=== PATIENT | male | born 1960 | race American Indian/Alaskan Native ===

== ENCOUNTER 2018-08-15 08:02 | Emergency (ER) | payer MEDICARE ==
[2018-08-15 08:51] LABS: Basophils % (Auto) 0.6 % (0.0-1.8); Eosinophils # (Auto) 0.1 K/mm3 (0.0-0.4); Eosinophils % (Auto) 2.7 % (0.0-4.3); Hematocrit 41.5 % (35.5-45.6); Hemoglobin 13.7 gm/dl (11.8-15.2); Lymphocytes # (Auto) 1.3 K/mm3 (1.2-5.4); Lymphocytes % (Auto) 32.6 % (13.4-35.0); Mean Corpuscular HGB Conc 33 % (32-34); Mean Corpuscular Volume 87 fl (84-94); Monocytes # (Auto) 0.6 K/mm3 (0.0-0.8); Monocytes % (Auto) 13.9 % (0.0-7.3); Platelet Count 156 K/mm3 (140-440); Red Blood Count 4.77 M/mm3 (3.65-5.03); Red Cell Distribution Width 13.9 % (13.2-15.2)
[2018-08-15 09:11] LABS: Bilirubin,Urine NEG (Negative); Blood,Urine NEG (Negative); Color,Urine Yellow (Yellow); Mucus,Urine FEW /HPF; Protein,Urine <15 mg/dL mg/dL (Negative); Urobilinogen,Urine < 2.0 mg/dL (<2.0); WBC,Urine < 1.0 /HPF (0.0-6.0)
[2018-08-15 09:24] LABS: Alanine Aminotransferase 13 units/L (7-56); Albumin 3.9 g/dL (3.9-5); BUN/Creatinine Ratio 13; Blood Urea Nitrogen 10 mg/dL (9-20); Calcium 9.1 mg/dL (8.4-10.2); Hemolysis Index 5
--- NOTE | 2018-08-15 09:55 | XRay Report ---
ABDOMINAL SERIES: History: Vomiting, abdominal pain. Findings: Multiple small air-fluid levels are identified throughout the abdomen. No dilated bowel or free air is identified. No pathologic calcifications. Normal stool in the colon. Heart and mediastinal structures are normal. The lung marino are clear. Impression: Findings consistent with gastroenteritis or a mild diffuse ileus. No acute abdominal findings.
--- NOTE | 2018-08-15 10:11 | Emergency Department Report ---
ED Abdominal Pain HPI - General Chief Complaint: Abdominal Pain Stated Complaint: BOWEL OBSTRUCTION Time Seen by Provider: 08/15/18 08:59 Source: patient Mode of arrival: Ambulatory Limitations: No Limitations - History of Present Illness Initial Comments: 58-year-old male presents to the hospital complaining of pain one week. Last week he was seen by an urgent care provider in [place] and told that he might have a bowel obstruction. He was advised to go to the hospital for further evaluation and imaging. Patient did not go because he have plans to traveled to [place]. He states that the unknown medication that was provided by the treating provider did not help. He continues to have left sided intermittent abdominal pain. Pain is moderate in intensity, worse with by mouth intake and palpitation. Positive nausea without reported vomiting. Patient did have some constipation but now he has diarrhea after taking mag citrate yesterday. No reports of fever, melena, hematochezia, or previous abdominal surgeries. Patient is a diabetic and has not taken his insulin because he states he has not been able to eat much. Severity scale (0 -10): 0 - Related Data Previous Rx's Medication Instructions Recorded Last Taken Type Famotidine [Pepcid] 20 mg PO BID #30 tablet 08/15/18 Unknown Rx Ondansetron [Zofran Odt] 4 mg PO Q8HR PRN #20 tab.rapdis 08/15/18 Unknown Rx Allergies Allergy/AdvReac Type Severity Reaction Status Date / Time No Known Allergies Allergy Unverified 08/15/18 08:04 ED Review of Systems ROS: Stated complaint: BOWEL OBSTRUCTION Other details as noted in HPI Comment: All other systems reviewed and negative ED Past Medical Hx - Past Medical History Hx CVA: Yes Hx Congestive Heart Failure: Yes Hx Diabetes: Yes Additional medical history: Valve Replacement - Surgical History Additional Surgical History: penile implant. valve replacement - Social History Smoking Status: Never Smoker Substance Use Type: Alcohol - Medications Home Medications: Home Medications Medication Instructions Recorded Confirmed Last Taken Type Famotidine [Pepcid] 20 mg PO BID #30 tablet 08/15/18 Unknown Rx Ondansetron [Zofran Odt] 4 mg PO Q8HR PRN #20 tab.rapdis 08/15/18 Unknown Rx ED Physical Exam - General Limitations: No Limitations - Other Other exam information: General: No limitations, patient is alert in no acute distress Head exam: Atraumatic, normocephalic Eyes exam: Normal appearance, pupils equal reactive to light, nonicteric sclera ENT: Moist mucous membrane, normal oropharynx Neck exam: Normal inspection, full range of motion, no meningismus nontender Respiratory exam: Clear to auscultation bilateral, no wheezes, rales, crackles Cardiovascular: Normal rate and rhythm, normal heart sounds Abdomen: Soft, nondistended, right upper quadrant, epigastric, left upper and lower quadrant abdominal tenderness on palpation. No rebound or guarding. Normal Bowel sounds Extremity: Full range of motion normal inspection no deformity Back: Normal Inspection, full range of motion, no tenderness Neurologic: Alert, oriented x3, cranial nerves intact, no motor or sensory deficit Psychiatric: normal affect, normal mood Skin: Warm, dry, intact ED Course Vital Signs 08/15/18 08:46 Temperature 97.7 F Pulse Rate 70 Respiratory 18 Rate Blood Pressure 143/78 O2 Sat by Pulse 100 Oximetry ED Medical Decision Making - Lab Data Result diagrams: 08/15/18 08:32 08/15/18 08:32 Lab Results 08/15/18 08/15/18 08/15/18 Range/Units 08:32 08:32 08:32 WBC 4.0 L (4.5-11.0) K/mm3 RBC 4.77 (3.65-5.03) M/mm3 Hgb 13.7 (11.8-15.2) gm/dl Hct 41.5 (35.5-45.6) % MCV 87 (84-94) fl MCH 29 (28-32) pg MCHC 33 (32-34) % RDW 13.9 (13.2-15.2) % Plt Count 156 (140-440) K/mm3 Lymph % (Auto) 32.6 (13.4-35.0) % [place]ett % (Auto) 13.9 H (0.0-7.3) % Eos % (Auto) 2.7 (0.0-4.3) % Baso % (Auto) 0.6 (0.0-1.8) % Lymph # 1.3 (1.2-5.4) K/mm3 Harnett # 0.6 (0.0-0.8) K/mm3 Eos # 0.1 (0.0-0.4) K/mm3 Baso # 0.0 (0.0-0.1) K/mm3 Seg Neutrophils % 50.2 (40.0-70.0) % Seg Neutrophils # 2.0 (1.8-7.7) K/mm3 VBG pH 7.336 (7.320-7.420) Sodium 137 (137-145) mmol/L Potassium 4.1 (3.6-5.0) mmol/L Chloride 99.8 (98-107) mmol/L Carbon Dioxide 28 (22-30) mmol/L Anion Gap 13 mmol/L BUN 10 (9-20) mg/dL Creatinine 0.8 (0.8-1.5) mg/dL Estimated GFR > 60 ml/min BUN/Creatinine Ratio 13 % Glucose 242 H (75-100) mg/dL Calcium 9.1 (8.4-10.2) mg/dL Total Bilirubin 0.30 (0.1-1.2) mg/dL AST 16 (5-40) units/L ALT 13 (7-56) units/L Alkaline Phosphatase 70 (35-129) units/L Total Protein 7.3 (6.3-8.2) g/dL Albumin 3.9 (3.9-5) g/dL Albumin/Globulin Ratio 1.1 % Lipase 122 H (13-60) units/L Urine Color (Yellow) Urine Turbidity (Clear) Urine pH (5.0-7.0) Ur Specific [place] (1.003-1.030) Urine Protein (Negative) mg/dL Urine Glucose (UA) (Negative) mg/dL Urine Ketones (Negative) mg/dL Urine Blood (Negative) Urine Nitrite (Negative) Urine Bilirubin (Negative) Urine Urobilinogen (<2.0) mg/dL Ur Leukocyte Esterase (Negative) Urine WBC (Auto) (0.0-6.0) /HPF Urine RBC (Auto) (0.0-6.0) /HPF U Epithel Cells (Auto) (0-13.0) /HPF Urine Mucus /HPF 08/15/18 Range/Units 09:02 WBC (4.5-11.0) K/mm3 RBC (3.65-5.03) M/mm3 Hgb (11.8-15.2) gm/dl Hct (35.5-45.6) % MCV (84-94) fl MCH (28-32) pg MCHC (32-34) % RDW (13.2-15.2) % Plt Count (140-440) K/mm3 Lymph % (Auto) (13.4-35.0) % H[place]ett % (Auto) (0.0-7.3) % Eos % (Auto) (0.0-4.3) % Baso % (Auto) (0.0-1.8) % Lymph # (1.2-5.4) K/mm3 H[place]ett # (0.0-0.8) K/mm3 Eos # (0.0-0.4) K/mm3 Baso # (0.0-0.1) K/mm3 Seg Neutrophils % (40.0-70.0) % Seg Neutrophils # (1.8-7.7) K/mm3 VBG pH (7.320-7.420) Sodium (137-145) mmol/L Potassium (3.6-5.0) mmol/L Chloride (98-107) mmol/L Carbon Dioxide (22-30) mmol/L Anion Gap mmol/L BUN (9-20) mg/dL Creatinine (0.8-1.5) mg/dL Estimated GFR ml/min BUN/Creatinine Ratio % Glucose (75-100) mg/dL Calcium (8.4-10.2) mg/dL Total Bilirubin (0.1-1.2) mg/dL AST (5-40) units/L ALT (7-56) units/L Alkaline Phosphatase (35-129) units/L Total Protein (6.3-8.2) g/dL Albumin (3.9-5) g/dL Albumin/Globulin Ratio % Lipase (13-60) units/L Urine Color Yellow (Yellow) Urine Turbidity Clear (Clear) Urine pH 5.0 (5.0-7.0) Ur Specific [place] 1.026 (1.003-1.030) Urine Protein <15 mg/dl (Negative) mg/dL Urine Glucose (UA) 50 (Negative) mg/dL Urine Ketones Neg (Negative) mg/dL Urine Blood Neg (Negative) Urine Nitrite Neg (Negative) Urine Bilirubin Neg (Negative) Urine Urobilinogen < 2.0 (<2.0) mg/dL Ur Leukocyte Esterase Neg (Negative) Urine WBC (Auto) < 1.0 (0.0-6.0) /HPF Urine RBC (Auto) 3.0 (0.0-6.0) /HPF U Epithel Cells (Auto) < 1.0 (0-13.0) /HPF Urine Mucus Few /HPF - Radiology Data Radiology results: report reviewed PROCEDURE: CT ABDOMEN PELVIS W CON CT DOSE LENGTH PRODUCT: 1131.7 mGy-cm. HISTORY: upper and LLQ abd pain, nausea after eating COMPARISONS: None currently available. FINDINGS: Abdomen: Lung bases and images of the heart are grossly unremarkable. Liver: Decreased heterogeneous attenuation may represent hepatocellular disease, fatty infiltration, or cirrhosis. No suspicious enhancements or lesions. Gallbladder, stomach, spleen, pancreas, and adrenals are unremarkable. Kidneys: Symmetrical cortical enhancement. No suspicious lesions. No hydronephrosis. Bilateral parapelvic cysts. No hydronephrosis. No aneurysm. No dissection. Mild atherosclerotic disease. Celiac axis, SMA, and both renal arteries are patent contrast. IVC is unremarkable. There is no periaortic or retroperitoneal adenopathy or mass. Fluid stool in the distal half the transverse colon down to the rectum. Possible mild wall thickening without stranding. A few air-fluid levels. More subtle stool in the right colon without wall thickening. No obstruction. Terminal ileum is unremarkable. Appendix is normal. Small bowel loops are unremarkable. No obstructive pattern. No air-fluid levels. No free air. No free fluid. Mesentery is unremarkable. Pelvis: Penile implant device with balloon in the right pelvis noted. Prominent heterogeneous prostate. Bladder: Mild diffuse wall thickening. No lesion. No stone. There is no pelvic mass or adenopathy. Inguinal regions are unremarkable. Bones: No suspicious osseous lesions on this limited examination of the skeleton. Metastatic disease better evaluated with bone scan. Degenerative changes are in the spine. IMPRESSION: * Suspect fatty liver. * Bilateral parapelvic cysts. No hydronephrosis. * Suspect mild colitis or enterocolitis with diarrhea in the left colon. No perforation, abscess, or projection. * Nonspecific mild bladder wall thickening. Differential diagnosis includes normal variation, cystitis, and bladder outlet obstruction. - Medical Decision Making Patient be treated symptomatically with nausea medication and follow-up with PMD. Treated in the ED with IV Zofran - Differential Diagnosis dyspepsia, gastroparesis, PUD, diverticulitis, constipation, IBS, Critical Care Time: No Critical care attestation.: If time is entered above; I have spent that time in minutes in the direct care of this critically ill patient, excluding procedure time. ED Disposition Clinical Impression: Gastroenteritis, Diabetes Disposition: DC-01 TO HOME OR SELFCARE Is pt being admited?: No Does the pt Need Aspirin: No Condition: Stable Instructions: Gastroenteritis (ED) Additional Instructions: Take the medication as prescribed. Follow up with your doctor or the clinic/doctor provided. Return if symptoms worsen as indicated by your discharge instructions. Take a copy of the labs and CT reports provided to your doctor for follow-up treatment Prescriptions: Famotidine [Pepcid] 20 mg PO BID #30 tablet Ondansetron [Zofran Odt] 4 mg PO Q8HR PRN #20 tab.rapdis PRN Reason: Nausea And Vomiting Referrals: ELIDIA BERMUDEZ MD [Primary Care Provider] - 3-5 Days Time of Disposition: 12:19
[2018-08-15] MEDS ORDERED: ZOFRAN IV ONE (11:06)
--- NOTE | 2018-08-15 11:58 | Cat Scan Report ---
PROCEDURE: CT ABDOMEN PELVIS W CON CT DOSE LENGTH PRODUCT: 1131.7 mGy-cm. HISTORY: upper and LLQ abd pain, nausea after eating COMPARISONS: None currently available. FINDINGS: Abdomen: Lung bases and images of the heart are grossly unremarkable. Liver: Decreased heterogeneous attenuation may represent hepatocellular disease, fatty infiltration, or cirrhosis. No suspicious enhancements or lesions. Gallbladder, stomach, spleen, pancreas, and adrenals are unremarkable. Kidneys: Symmetrical cortical enhancement. No suspicious lesions. No hydronephrosis. Bilateral parape lvic cysts. No hydronephrosis. No aneurysm. No dissection. Mild atherosclerotic disease. Celiac axis, SMA, and both renal arteries are patent contrast. IVC is unremarkable. There is no periaortic or retroperitoneal adenopathy or mass. Fluid stool in the distal half the transverse colon down to the rectum. Possible mild wall thickening without stranding. A few air-fluid levels. More subtle stool in the right colon without wall thicken ing. No obstruction. Terminal ileum is unremarkable. Appendix is normal. Small bowel loops are unremarkable. No obstructive pattern. No air-fluid levels. No free air. No free fluid. Mesentery is unremarkable. Pelvis: Penile implant device with balloon in the right pelvis noted. Prominent heterogeneous prostate. Bladder: Mild diffuse wall thickening. No lesion. No stone. There is no pelvic mass or adenopathy. Inguinal regions are unremarkable. Bones: No suspicious osseous lesions on this limited examination of the skeleton. Metastatic disease better evaluated with bone scan. Degenerative changes are in the spine. IMPRESSION: * Suspect fatty liver. * Bilateral parapelvic cysts. No hydronephrosis. * Suspect mild colitis or enterocolitis with diarrhea in the left colon. No perforation, abscess, or projection. * Nonspecific mild bladder wall thickening. Differential diagnosis includes normal variation, cystit is, and bladder outlet obstruction. This document is electronically signed by Pierre Fall MD., August 15 2018 11:56:00 AM ET
[2018-08-15 12:29] VITALS: BP 140/86
== END 2018-08-15 12:29 | disposition home or self-care (01) ==
LOC: ED 08:02
DX: K52.9 Noninfective gastroenteritis and colitis, unspecified (principal); E11.9 Type 2 diabetes mellitus without complications; I50.9 Heart failure, unspecified; Z86.73 Personal history of transient ischemic attack (TIA), and cerebral infarction without residual deficits; Z95.1 Presence of aortocoronary bypass graft
CPT/HCPCS: 36415; 74022; 74177; 80053; 81001; 82805; 83690; 85025; 96374; 99284; J2405; Q9967